=== PATIENT | female | born 1960 | race American Indian/Alaskan Native ===

== ENCOUNTER 2017-04-18 11:00 | Outpatient (CLI) | payer BC ==
--- NOTE | 2017-04-18 11:43 | Mammography Report ---
BILATERAL MAMMOGRAM: FINDINGS: There are scattered fibroglandular densities (approximately 25%-50% glandular). No mass, distortion, suspicious calcification, or skin change is seen. There are no interval changes when compared to her prior examination in January 2015. CAD was utilized. IMPRESSION: Negative mammogram. There is no mammographic evidence of malignancy. RECOMMENDATION: Follow-up per ACS guidelines. BI-RADS CATEGORY: 1 = Negative ACR BI-RADS MAMMOGRAPHIC CODES: 0 = Needs additional imaging evaluation; 1 = Negative; 2 = Benign; 3 = Probably benign; 4 = Suspicious; 5 = Malignant; 6 = Known biopsy-proven malignancy COMMENT: 1. Dense breast tissue, i.e., adenosis, fibrocystic changes, etc., may obscure an underlying neoplasm. 2. Approximately 10% of cancers are not detected with mammography. 3. A negative mammography report should not delay biopsy if a clinically suspicious mass is present. COMMENT: Patient follow-up letters are generated in [employer].
== END 2017-04-18 11:01 | disposition home or self-care (01) ==
LOC: MAMMO 11:00
PROVIDERS: ATTEND Obstetrics & Gynecology
DX: Z12.31 Encounter for screening mammogram for malignant neoplasm of breast (principal); I10 Essential (primary) hypertension; E78.00 Pure hypercholesterolemia, unspecified; J45.909 Unspecified asthma, uncomplicated; D64.9 Anemia, unspecified; Z87.891 Personal history of nicotine dependence
CPT/HCPCS: 77067; G0202

== ENCOUNTER 2017-05-29 08:14 | Outpatient (CLI) | payer BC ==
--- NOTE | 2017-06-04 10:58 | Treadmill Report ---
ORDERING PHYSICIAN: Jabari Remy MD FINDINGS: There is no scintigraphic evidence of myocardial ischemia. The left ventricle is normal in size and systolic function. The left ventricular ejection fraction is measured at 70% with normal wall motion and wall thickening noted on gated imaging. IMPRESSION: Normal perfusion scan. JOB# [id number] NED/NTS
== END 2017-05-29 08:15 | disposition home or self-care (01) ==
LOC: CARD 08:14
PROVIDERS: ATTEND Internal Medicine Cardiovascular Disease
DX: I08.1 Rheumatic disorders of both mitral and tricuspid valves (principal); I10 Essential (primary) hypertension; R00.2 Palpitations; R01.1 Cardiac murmur, unspecified; Z87.891 Personal history of nicotine dependence
CPT/HCPCS: 78452; 93017; 93306; A9502

== ENCOUNTER → 2018-03-08 | Outpatient (CLI) | payer BC | LOC: SLR 11:00 | PROVIDERS: ATTEND Otolaryngology | DX: G47.30 Sleep apnea, unspecified (principal); I10 Essential (primary) hypertension; E78.00 Pure hypercholesterolemia, unspecified; J45.909 Unspecified asthma, uncomplicated; Z87.891 Personal history of nicotine dependence | CPT/HCPCS: 95810 ==

== ENCOUNTER 2018-04-18 10:13 | Outpatient (CLI) | payer BC ==
[2018-04-18 11:04] LABS: BUN/Creatinine Ratio 19; Blood Urea Nitrogen 15 mg/dL (7-17); Calcium 9.5 mg/dL (8.4-10.2); Chol/HDL Ratio 5.86 %; HDL Cholesterol 38 mg/dL (40-59); Hemolysis Index 1; LDL Cholesterol,Direct 189 mg/dL (50-130)
== END 2018-04-18 10:14 | disposition home or self-care (01) ==
LOC: LAB 10:13
PROVIDERS: ATTEND Internal Medicine
DX: I10 Essential (primary) hypertension (principal); E78.00 Pure hypercholesterolemia, unspecified; E11.40 Type 2 diabetes mellitus with diabetic neuropathy, unspecified; J45.909 Unspecified asthma, uncomplicated; Z87.891 Personal history of nicotine dependence
CPT/HCPCS: 36415; 80048; 80061; 83036; 84443

== ENCOUNTER 2018-04-20 11:00 | Outpatient (CLI) | payer BC | END 2018-04-20 11:01 | disposition home or self-care (01) | LOC: SLR 11:00 | PROVIDERS: ATTEND Otolaryngology | DX: G47.33 Obstructive sleep apnea (adult) (pediatric) (principal); R40.0 Somnolence; I10 Essential (primary) hypertension; E78.00 Pure hypercholesterolemia, unspecified; J45.909 Unspecified asthma, uncomplicated; Z87.891 Personal history of nicotine dependence; Z91.040 Latex allergy status; Z91.048 Other nonmedicinal substance allergy status | CPT/HCPCS: 95811 ==

== ENCOUNTER 2018-06-05 16:43 | Outpatient (CLI) | payer BC ==
--- NOTE | 2018-06-05 19:21 | XRay Report ---
FINAL REPORT EXAM: XR SPINE LUMBOSACRAL 4+V HISTORY: LOWER BACK PAIN TECHNIQUE: AP, lateral, bilateral oblique, and coned-down views of the lumbar spine PRIORS: None. FINDINGS: The vertebral body heights and disc spaces are well maintained. The alignment is normal. No evidence for spondylolysis or spondylolisthesis is seen. Pedicles are intact bilaterally at all levels. The paraspinal soft tissues are unremarkable. There is a large rounded amorphous 3.5 cm calcification in the left side of the pelvis, likely a uterine fibroid. IMPRESSION: Normal lumbar spine.
== END 2018-06-05 16:44 | disposition home or self-care (01) ==
LOC: XRAY 16:43
PROVIDERS: ATTEND Nurse Practitioner
DX: M54.5 Low back pain (principal); I10 Essential (primary) hypertension; E78.00 Pure hypercholesterolemia, unspecified; Z87.891 Personal history of nicotine dependence; Z91.040 Latex allergy status; Z91.048 Other nonmedicinal substance allergy status
CPT/HCPCS: 72110

== ENCOUNTER 2019-03-02 08:24 | Outpatient (CLI) | payer BC ==
[2019-03-02 11:57] LABS: Chol/HDL Ratio 4.2 %
[2019-03-05 06:50] LABS: Vitamin D, 25-OH, D2 31 ng/mL
== END 2019-03-02 08:25 | disposition home or self-care (01) ==
LOC: LAB 08:24
PROVIDERS: ATTEND Internal Medicine
DX: E11.40 Type 2 diabetes mellitus with diabetic neuropathy, unspecified (principal); E55.9 Vitamin D deficiency, unspecified; E78.5 Hyperlipidemia, unspecified; E66.09 Other obesity due to excess calories; A69.20 Lyme disease, unspecified; E78.00 Pure hypercholesterolemia, unspecified; J45.909 Unspecified asthma, uncomplicated
CPT/HCPCS: 36415; 80061; 82306; 82607; 83036

== ENCOUNTER 2019-05-11 09:26 | Outpatient (CLI) | payer BC ==
[2019-05-11 10:13] LABS: Bacteria,Urine 1+ /HPF (Negative); Bilirubin,Urine NEG (Negative); Blood,Urine MOD (Negative); Color,Urine Yellow (Yellow); Mucus,Urine FEW /HPF; Protein,Urine <15 mg/dL mg/dL (Negative); Urobilinogen,Urine < 2.0 mg/dL (<2.0)
== END 2019-05-11 09:27 | disposition home or self-care (01) ==
LOC: LAB 09:26
PROVIDERS: ATTEND Internal Medicine
DX: N39.0 Urinary tract infection, site not specified (principal); E78.00 Pure hypercholesterolemia, unspecified; I10 Essential (primary) hypertension
CPT/HCPCS: 81001; 87076; 87086; 87186

== ENCOUNTER 2019-05-26 08:26 | Day surgery (SDC) | payer BC ==
[~2019-05-26 08:26] MED LIST: DIPRIVAN 10 MG/ML IV ONE; NACL 0.9% 1000 ML 1,000 ML IV SCH
--- NOTE | 2019-05-26 09:30 | Anesthesia Day of Surgery ---
Anesthesia Day of Surgery - Day of Surgery Patient Examined: Yes Patient H&P Reviewed: Yes Patient is NPO: Yes
--- NOTE | 2019-05-26 09:34 | Anesthesia Consultation ---
Anesthesia Consult and Med Hx Date of service: 05/26/19 - Airway Anesthetic Teeth Evaluation: Caps ROM Head & Neck: Adequate Mental/Hyoid Distance: Adequate Mallampati Class: Class II Intubation Access Assessment: Probably Good - Pre-Operative Health Status ASA Pre-Surgery Classification: ASA3 Proposed Anesthetic Plan: MAC - Pulmonary Hx Smoking: Yes (STOPPED X 22YRS- 1 PPD X 10 YRS) Hx Asthma: Yes (INHALERS PRN) Hx Sleep Apnea: Yes (DX SLEEP APNEA , NO CPAP USE.) - Cardiovascular System Hx Hypertension: Yes Hx Cardia Arrhythmia: Yes (PVCs; NST approx 3years ago ok per pt) Hx Heart Murmur: Yes (CAUSES NO PROBLEMS) - Gastrointestinal Hx Gastroesophageal Reflux Disease: Yes (Occasional) - Endocrine Hx Non-Insulin Dependent Diabetes: Yes (FBS 101) - Hematic Hx Anemia: Yes - Other Systems Hx Cancer: No
--- NOTE | 2019-05-26 11:05 | Short Stay Summary ---
Short Stay Documentation Date of service: 05/26/19 Narrative H&P: The patient present for her first screening colonoscopy, high risk due to FH of a first degree relative with colon polyps, mother. - History Past Medical History: anemia, diabetes, hypertension, hyperlipidemia, other (asthma) Past Surgical History: No surgical history Social history: no significant social history - Allergies and Medications Current Medications: Allergies latex Allergy (Verified 08/31/16 08:50) Itching METALS Allergy (Uncoded 08/31/16 08:51) Itching Home Medications Medication Instructions Recorded Confirmed Last Taken Type metFORMIN [Glucophage] 500 mg PO BID 11/20/13 05/26/19 05/24/19 History ALBUTEROL Inhaler (OR & NICU) 2 puff IH QID PRN 08/30/16 08/30/16 Unknown History [Proair] Aspirin [Adult Low Dose Aspirin EC] 81 mg PO DAILY 08/30/16 08/30/16 Unknown History Losartan [Cozaar] 50 mg PO QDAY 08/30/16 08/30/16 Unknown History Metformin HCl [Glucophage] 1,000 mg PO BID 08/30/16 08/30/16 Unknown History Mometasone/Formoterol [Dulera 100 2 puff IH PRN PRN 08/30/16 08/30/16 Unknown History Mcg/5 Mcg Inhaler] Verapamil HCl [Verapamil ER] 180 mg PO QHS 08/30/16 05/26/19 05/24/19 History ALBUTEROL Inhaler (OR & NICU) 2 puff IH QID PRN 08/31/16 09/12/16 08/15/16 09:00 History [Proair] Aspirin [Adult Low Dose Aspirin EC] 81 mg PO DAILY 08/31/16 09/12/16 05/24/19 History Losartan [Cozaar] 50 mg PO QDAY 08/31/16 05/26/19 05/24/19 History Mometasone/Formoterol [Dulera 100 2 puff IH PRN PRN 08/31/16 09/12/16 08/29/16 09:00 History Mcg/5 Mcg Inhaler] Verapamil ER [Calan Sr] 180 mg PO QHS 08/31/16 09/12/16 09/11/16 22:30 History Active Medications Sodium Chloride (Nacl 0.9% 1000 Ml) 1,000 mls @ 50 mls/hr IV DIRECT FELIBERTO Last Admin: 05/26/19 09:31 Dose: 50 mls/hr Documented by: - Physical exam General appearance: no acute distress, well-nourished Integumentary: no rash, no growths, no abnormal pigmentation HEENT: Atraumatic, PERRLA, EOMI, Mucous membr. moist/pink Lungs: Clear to auscultation, Normal air movement Breasts: deferred Heart: Regular rate, Normal S1, Normal S2, No murmurs Gastrointestinal: normoactive bowel sounds, no tenderness, no distended, no masses, no guarding, no organomegaly Female Genitourinary: deferred Rectal Exam: normal exam-external/orifice, no mass Extremities: no ischemia, pulses intact, pulses symmetrical, No edema, normal temperature, normal color, Full ROM Neurological: Normal gait, Normal speech, Strength at 5/5 X4 ext, Normal tone, Sensation intact, Cranial nerves 3-12 NL - Brief post op/procedure progress note Date of procedure: 05/26/19 Findings: report dictated Estimated blood loss: none Pathology: none Condition: stable - Disposition Condition at discharge: Good Disposition: DC-01 TO HOME OR SELFCARE - Discharge Diagnoses (1) FH: colon polyps Status: Acute Short Stay Discharge Plan Activity: other (no driving for 24 hours) Weight Bearing Status: Weight Bear as Tolerated Diet: diabetic Follow up with: ZANDRA DORANTES MD [Primary Care Provider] - 7 Days
--- NOTE | 2019-05-26 11:07 | Operative Report ---
Operative Report Operative Report: Date of procedure: 05/26/2019 Preprocedure diagnosis:, Family history of colon polyps in a first-degree relat bettie. No prior colon studies. Post procedure diagnosis: Almost study Procedure: Colonoscopy to the cecum Endoscopist: Dr. Hines Anesthesia: Monitored anesthesia care per anesthesia department Estimated blood loss: 0 Medications: Monitored anesthesia care. See separate report by anesthesia for details. After careful discussion of the nature and purpose of the procedure as well as details of the technique risks benefits and alternatives the patient gave consent. Please see recent history and physical from the office. The patient was placed in the left lateral decubitus position and medicated per anesthesia. A rectal exam was performed sphincter tone was normal there were no masses palpable. The Olympus PCH 190 video colonoscope was passed transanally and advanced under continuous direct vision without difficulty to the cecum. The colon was well prepared. The cecum was normal. The ascending colon was normal and on forward and retroflexed views. The transverse colon, descending colon, and sigmoid colon were normal. The rectum was normal on forward and retroflexed views. The procedure was well-tolerated overall and the patient was observed in recovery. Conclusions: Normal colonoscopy to the cecum. Plan: Repeat colonoscopy in 5 years. Signed electronically: Tramaine Hines M.D.
[2019-05-26 11:39] VITALS: BP 152/81
== END 2019-05-26 08:27 | disposition home or self-care (01) ==
LOC: GIO 08:26
PROVIDERS: ATTEND Internal Medicine Gastroenterology
DX: Z12.11 Encounter for screening for malignant neoplasm of colon (principal); I10 Essential (primary) hypertension; E11.9 Type 2 diabetes mellitus without complications; J45.909 Unspecified asthma, uncomplicated; G47.30 Sleep apnea, unspecified; K21.9 Gastro-esophageal reflux disease without esophagitis; E78.00 Pure hypercholesterolemia, unspecified; Z83.71 Family history of colonic polyps; Z91.040 Latex allergy status; Z79.899 Other long term (current) drug therapy; Z79.84 Long term (current) use of oral hypoglycemic drugs; Z79.82 Long term (current) use of aspirin; Z98.49 Cataract extraction status, unspecified eye; Z87.440 Personal history of urinary (tract) infections; Z98.890 Other specified postprocedural states; Z87.891 Personal history of nicotine dependence; Z88.8 Allergy status to other drugs, medicaments and biological substances; Z86.2 Personal history of diseases of the blood and blood-forming organs and certain disorders involving the immune mechanism
CPT/HCPCS: 45378; 82962; J2704; J7030

== ENCOUNTER 2019-12-23 09:12 | Outpatient (CLI) | payer BC | END 2019-12-23 09:13 | disposition home or self-care (01) | LOC: PF 09:12 | PROVIDERS: ATTEND Internal Medicine | DX: J45.909 Unspecified asthma, uncomplicated (principal) | CPT/HCPCS: 94010; 94726; 94729 ==

== ENCOUNTER 2020-07-27 15:54 | Outpatient (CLI) | payer BC ==
--- NOTE | 2020-07-27 17:20 | XRay Report ---
XR hip 2-3V RT INDICATION / CLINICAL INFORMATION: PAINFUL RT HIP X 3 MONTHS. COMPARISON: None available. FINDINGS: No acute fracture. Normal alignment. Joint spaces are preserved. No destructive osseous lesion or s uspicious periosteal reaction. 3.6 cm calcified fibroid. Impression: 1. No significant abnormality of the right hip. Signer Name: John Patino MD Signed: 07/27/2020 5:15 PM Workstation Name: [id number]
== END 2020-07-27 15:55 | disposition home or self-care (01) ==
LOC: XRAY 15:54
PROVIDERS: ATTEND Internal Medicine
DX: M25.551 Pain in right hip (principal); D36.7 Benign neoplasm of other specified sites

== ENCOUNTER 2020-08-18 14:35 | Outpatient (CLI) | payer BC ==
--- NOTE | 2020-08-18 17:00 | Mammography Report ---
DIGITAL SCREENING MAMMOGRAM WITH CAD, 08/18/2020 INDICATION: Routine screening mammography. TECHNIQUE: Digital bilateral 2D mammography was obtained in the craniocaudal and mediolateral obliq ue projections. This examination was interpreted with the benefit of Computer-Aided Detection analysi s. COMPARISON: 04/18/2017 and 11/13/2018 FINDINGS: Breast Density: There are scattered areas of fibroglandular density. There is no evidence of dominant mass, suspicious calcifications or architectural distortion in eithe r breast. IMPRESSION: Follow up recommendation: Routine yearly BI-RADS Category 1: Negative. A "normal" or negative report should not discourage follow up or biopsy of a clinically significant f inding. A written summary of these findings will be mailed to the patient. The patient will be entered into a mammography reporting system which will generate a reminder letter for the patient's next appointmen t at the appropriate interval. The [employer] recommends yearly mammograms starting at age 40 and continuing as l binh as a woman is in good health. Breast MRI is recommended for women with an approximate 20-25% or greater lifetime risk of breast cancer, including women with a strong family history of breast or ova shane cancer or who have been treated for Hodgkin's disease. Signer Name: Jarrell Ramírez MD Signed: 08/18/2020 4:55 PM Workstation Name: [email or web address]
== END 2020-08-18 14:36 | disposition home or self-care (01) ==
LOC: MAMMO 14:35
PROVIDERS: ATTEND Internal Medicine
DX: Z12.31 Encounter for screening mammogram for malignant neoplasm of breast (principal); N64.89 Other specified disorders of breast
CPT/HCPCS: 77067

== ENCOUNTER 2020-09-09 07:13 | Outpatient (CLI) | payer BC ==
--- NOTE | 2020-09-09 09:20 | Magnetic Resonance Report ---
. MRI RIGHT HIP WITHOUT CONTRAST INDICATION / CLINICAL INFORMATION: rt hip pain and stiffness. COMPARISON: Right hip x-ray 07/27/2020 TECHNIQUE: Multisequence, multiplanar images were obtained. FINDINGS: ACETABULAR LABRUM: Degenerative signal superior labrum. ARTICULAR CARTILAGE: No significant abnormality. JOINT SPACE AND CAPSULE: No significant abnormality. GLUTEAL MUSCLES/TENDONS: Moderate grade partial width tear involving two thirds width right distal gl uteus medius tendon with peritendinous edema ILIOPSOAS MUSCLES/TENDON: No significant abnormality. PROXIMAL HAMSTRING TENDONS: No significant abnormality. GROIN MUSCLES/TENDONS: No significant abnormality. SUBCUTANEOUS SOFT TISSUES: No significant abnormality. BONES: No significant bone marrow edema. No fracture. No osseous lesion. SACROILIAC JOINT(S): No significant abnormality. LOWER LUMBAR SPINE: No significant abnormality of visualized lower lumbar spine. SOFT TISSUE WITHIN PELVIS: Several uterine leiomyomas, largest of which measures 2.9 cm within the le ft uterine body. ADDITIONAL FINDINGS: None. IMPRESSION: 1. Moderate grade partial width tear right gluteus medius tendon 2. Degenerative signal right acetabular labrum 3. Leiomyomatous uterus Signer Name: Philip Campos MD Signed: 09/09/2020 9:16 AM Workstation Name: [id number]
== END 2020-09-09 07:14 | disposition home or self-care (01) ==
LOC: MRI 07:13
PROVIDERS: ATTEND Internal Medicine
DX: S76.011A Strain of muscle, fascia and tendon of right hip, initial encounter (principal); M25.551 Pain in right hip; M16.11 Unilateral primary osteoarthritis, right hip; D25.9 Leiomyoma of uterus, unspecified; X58.XXXA Exposure to other specified factors, initial encounter; Y93.89 Activity, other specified; Y92.89 Other specified places as the place of occurrence of the external cause; Y99.8 Other external cause status
CPT/HCPCS: 73721

== ENCOUNTER 2021-07-07 14:29 | Outpatient (CLI) | payer BC ==
--- NOTE | 2021-07-07 17:02 | XRay Report ---
LUMBAR SPINE 4 VIEWS INDICATION / CLINICAL INFORMATION: M54.5 LOW BACK PAIN. COMPARISON: None available. FINDINGS: VERTEBRAE: No fracture. No significant malalignment. DISC SPACES:Mild discogenic degenerative disease L4-S1. FACET JOINTS:Moderate facet degenerative disease L4-S1 ADDITIONAL FINDINGS: No abnormal motion between flexion or extension views. 4.4 cm calcified uterine fibroid IMPRESSION: 1. Discogenic and facet degenerative disease lower lumbar spine 2 calcified uterine fibroid. Signer Name: Philip Campos MD Signed: 07/07/2021 4:58 PM Workstation Name: [id number]
== END 2021-07-07 14:30 | disposition home or self-care (01) ==
LOC: XRAY 14:29
PROVIDERS: ATTEND Orthopaedic Surgery
DX: M47.817 Spondylosis without myelopathy or radiculopathy, lumbosacral region (principal); D25.9 Leiomyoma of uterus, unspecified
CPT/HCPCS: 72110

== ENCOUNTER 2021-09-01 09:40 | Emergency (ER) | payer BC ==
[2021-09-01 10:57] LABS: Bilirubin,Urine NEG (Negative); Blood,Urine SM (Negative); Color,Urine Yellow (Yellow); Mucus,Urine FEW /HPF; Protein,Urine <15 mg/dL mg/dL (Negative); Urobilinogen,Urine < 2.0 mg/dL (<2.0)
[2021-09-01 11:06] LABS: Basophils % (Auto) 0.9 % (0.0-1.8); Eosinophils # (Auto) 0.2 K/mm3 (0.0-0.4); Eosinophils % (Auto) 4.8 % (0.0-4.3); Hemoglobin 11.3 gm/dl (10.1-14.3); Lymphocytes # (Auto) 1.3 K/mm3 (1.2-5.4); Lymphocytes % (Auto) 31.2 % (13.4-35.0); Mean Corpuscular HGB Conc 31 % (30-34); Mean Corpuscular Volume 85 fl (79-97); Monocytes # (Auto) 0.4 K/mm3 (0.0-0.8); Monocytes % (Auto) 8.6 % (0.0-7.3); Platelet Count 343 K/mm3 (140-440); Red Blood Count 4.25 M/mm3 (3.65-5.03); Red Cell Distribution Width 14.6 % (13.2-15.2)
[2021-09-01 11:25] LABS: Alanine Aminotransferase 24 units/L (7-56); Albumin 4.3 g/dL (3.9-5); BUN/Creatinine Ratio 17; Blood Urea Nitrogen 12 mg/dL (7-17); Calcium 9.2 mg/dL (8.4-10.2); Hemolysis Index 5
--- NOTE | 2021-09-01 11:49 | Emergency Department Report ---
ED General Adult HPI - General Chief complaint: Dizziness Stated complaint: SYNCOPE Time Seen by Provider: 09/01/21 10:30 Source: patient Mode of arrival: Ambulatory Limitations: No Limitations - History of Present Illness Initial comments: 61-year-old -[place] female patient presents with complaints of intermittent episodes of dizziness x1 month. Patient in describes the dizziness as feeling woozy and off balance. She denies any headache, syncopal episodes, chest pain, shortness of breath, vision changes, numbness/tingling/weakness in her limbs, confusion, memory loss, or difficulty with speech/ambulation. No blood thinner use per patient. She has history of diabetes and hypertension and follows with Dr. Ng, last appointment about 1 week ago per patient. No current dizziness per patient. She reports last episode of dizziness was yesterday and lasted about 30 to 40 minutes which was longer than normal so she decided to be seen today. Patient also denies any nausea/vomiting or urinary symptoms. She states she is intermittently compliant with her blood pressure medication. - Related Data Home Medications Medication Instructions Recorded Confirmed Last Taken metFORMIN [Glucophage] 500 mg PO BID 11/20/13 05/26/19 05/24/19 Albuterol Mdi (or & Nicu Only) 2 puff IH QID PRN 08/30/16 08/30/16 Unknown [ProAir HFA Inhaler] Aspirin [Adult Low Dose Aspirin EC] 81 mg PO DAILY 08/30/16 08/30/16 Unknown Losartan [Cozaar] 50 mg PO QDAY 08/30/16 08/30/16 Unknown Metformin HCl [Glucophage] 1,000 mg PO BID 08/30/16 08/30/16 Unknown Mometasone/Formoterol [Dulera 100 2 puff IH PRN PRN 08/30/16 08/30/16 Unknown Mcg-5 Mcg Inhaler] Verapamil HCl [Verapamil ER] 180 mg PO QHS 08/30/16 05/26/19 05/24/19 Aspirin [Adult Low Dose Aspirin EC] 81 mg PO DAILY 08/31/16 09/12/16 05/24/19 Losartan [Cozaar] 50 mg PO QDAY 08/31/16 05/26/19 05/24/19 Mometasone/Formoterol [Dulera 100 2 puff IH PRN PRN 08/31/16 09/12/16 08/29/16 09:00 Mcg-5 Mcg Inhaler] Verapamil ER [Calan SR] 180 mg PO QHS 08/31/16 09/12/16 09/11/16 22:30 Previous Rx's Medication Instructions Recorded Last Taken Type Albuterol Mdi (or & Nicu Only) 2 puff IH QID PRN #1 inha 06/17/19 Unknown Rx [ProAir HFA Inhaler] Allergies Allergy/AdvReac Type Severity Reaction Status Date / Time latex Allergy Itching Verified 07/10/21 13:36 METALS Allergy Itching Uncoded 07/10/21 13:36 ED Review of Systems ROS: Stated complaint: SYNCOPE Other details as noted in HPI Constitutional: denies: chills, diaphoresis, fever, malaise, weakness Respiratory: denies: cough, shortness of breath Cardiovascular: denies: chest pain Gastrointestinal: denies: abdominal pain, nausea, vomiting Neurological: denies: headache, weakness, numbness, paresthesias, confusion, ab normal gait, vertigo Hematological/Lymphatic: denies: easy bleeding ED Past Medical Hx - Past Medical History Previous Medical History?: Yes Hx Hypertension: Yes Hx Diabetes: Yes Hx Arthritis: Yes Hx Headaches / Migraines: Yes (MIGRAINES 25 YRS AGO) Hx Asthma: Yes (INHALERS PRN) 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- NOW NEG CXR) - Surgical History Past Surgical History?: Yes Additional Surgical History: BILATERAL CARPAL TUNNEL RELEASE - Social History Smoking Status: Never Smoker Substance Use Type: None - Medications Home Medications: Home Medications Medication Instructions Recorded Confirmed Last Taken Type metFORMIN [Glucophage] 500 mg PO BID 11/20/13 05/26/19 05/24/19 History Albuterol Mdi (or & Nicu Only) 2 puff IH QID PRN 08/30/16 08/30/16 Unknown Hist ory [ProAir HFA Inhaler] Aspirin [Adult Low Dose Aspirin EC] 81 mg PO DAILY 08/30/16 08/30/16 Unknown History Losartan [Cozaar] 50 mg PO QDAY 08/30/16 08/30/16 Unknown History Metformin HCl [Glucophage] 1,000 mg PO BID 08/30/16 08/30/16 Unknown History Mometasone/Formoterol [Dulera 100 2 puff IH PRN PRN 08/30/16 08/30/16 Unknown History Mcg-5 Mcg Inhaler] Verapamil HCl [Verapamil ER] 180 mg PO QHS 08/30/16 05/26/19 05/24/19 History Aspirin [Adult Low Dose Aspirin EC] 81 mg PO DAILY 08/31/16 09/12/16 05/24/19 History Losartan [Cozaar] 50 mg PO QDAY 08/31/16 05/26/19 05/24/19 History Mometasone/Formoterol [Dulera 100 2 puff IH PRN PRN 08/31/16 09/12/16 08/29/16 09:00 History Mcg-5 Mcg Inhaler] Verapamil ER [Calan SR] 180 mg PO QHS 08/31/16 09/12/16 09/11/16 22:30 History Albuterol Mdi (or & Nicu Only) 2 puff IH QID PRN #1 inha 06/17/19 Unknown Rx [ProAir HFA Inhaler] ED Physical Exam - General Limitations: No Limitations General appearance: alert, in no apparent distress - Head Head exam: Present: atraumatic, normocephalic - Eye Eye exam: Present: normal appearance. Absent: scleral icterus - Respiratory Respiratory exam: Absent: respiratory distress - Cardiovascular Cardiovascular Exam: Present: regular rate, normal rhythm - Neurological Exam Neurological exam: Present: alert, oriented X3, CN II-XII intact, normal gait, motor sensory deficit - Expanded Neurological Exam Expanded Cerebellar function: Finger to Nose: Normal, Heel to Wilder: Normal, Romberg: Normal Sensory exam: Upper Extremity Light Touch: Normal, Lower Extremity Light Touch: Normal Motor strength exam: RUE: 4, LUE: 4, RLE: 4, LLE: 4 Best Eye Response (Lynda): (4) open spontaneously Best Motor Response ([place]): (6) obeys commands Best Verbal Response (Lynda): (5) oriented Lynda Total: 15 - Psychiatric Psychiatric exam: Present: normal affect, normal mood - Skin Skin exam: Present: warm, dry, intact, normal color. Absent: rash ED Course Vital Signs 09/01/21 09/01/21 09:52 11:48 Temperature 98.4 F Pulse Rate 79 Pulse Rate [ 80 Lying] Respiratory 20 Rate Blood Pressure 139/72 Blood Pressure 132/70 [Lying] O2 Sat by Pulse 99 Oximetry ED Medical Decision Making - Lab Data Result diagrams: 09/01/21 10:29 09/01/21 10:29 Lab Results 09/01/21 09/01/21 09/01/21 Range/Units 10:29 10:29 10:33 WBC 4.1 L (4.5-11.0) K/mm3 RBC 4.25 (3.65-5.03) M/mm3 Hgb 11.3 (10.1-14.3) gm/dl Hct 36.0 (30.3-42.9) % MCV 85 (79-97) fl MCH 27 L (28-32) pg MCHC 31 (30-34) % RDW 14.6 (13.2-15.2) % Plt Count 343 (140-440) K/mm3 Lymph % (Auto) 31.2 (13.4-35.0) % Benson % (Auto) 8.6 H (0.0-7.3) % Eos % (Auto) 4.8 H (0.0-4.3) % Baso % (Auto) 0.9 (0.0-1.8) % Lymph # (Auto) 1.3 (1.2-5.4) K/mm3 Benson # (Auto) 0.4 (0.0-0.8) K/mm3 Eos # (Auto) 0.2 (0.0-0.4) K/mm3 Baso # (Auto) 0.0 (0.0-0.1) K/mm3 Seg Neutrophils % 54.5 (40.0-70.0) % Seg Neutrophils # 2.2 (1.8-7.7) K/mm3 Sodium 140 (137-145) mmol/L Potassium 4.2 (3.6-5.0) mmol/L Chloride 102.9 (98-107) mmol/L Carbon Dioxide 24 (22-30) mmol/L Anion Gap 17 mmol/L BUN 12 (7-17) mg/dL Creatinine 0.7 (0.6-1.2) mg/dL Estimated GFR > 60 ml/min BUN/Creatinine Ratio 17 % Glucose 216 H (65-100) mg/dL POC Glucose 225 H (70-105) mg/dL Calcium 9.2 (8.4-10.2) mg/dL Total Bilirubin 0.20 (0.1-1.2) mg/dL AST 20 (5-40) units/L ALT 24 (7-56) units/L Alkaline Phosphatase 59 (35-129) units/L Troponin T < 0.010 (0.00-0.029) ng/mL Total Protein 7.7 (6.3-8.2) g/dL Albumin 4.3 (3.9-5) g/dL Albumin/Globulin Ratio 1.3 % Urine Color (Yellow) Urine Turbidity (Clear) Urine pH (5.0-7.0) Ur Specific [place] (1.003-1.030) Urine Protein (Negative) mg/dL Urine Glucose (UA) (Negative) mg/dL Urine Ketones (Negative) mg/dL Urine Blood (Negative) Urine Nitrite (Negative) Urine Bilirubin (Negative) Urine Urobilinogen (<2.0) mg/dL Ur Leukocyte Esterase (Negative) Urine WBC (Auto) (0.0-6.0) /HPF Urine RBC (Auto) (0.0-6.0) /HPF U Epithel Cells (Auto) (0-13.0) /HPF Urine Mucus /HPF // Range/Units Unknown WBC (4.5-11.0) K/mm3 RBC (3.65-5.03) M/mm3 Hgb (10.1-14.3) gm/dl Hct (30.3-42.9) % MCV (79-97) fl MCH (28-32) pg MCHC (30-34) % RDW (13.2-15.2) % Plt Count (140-440) K/mm3 Lymph % (Auto) (13.4-35.0) % Benson % (Auto) (0.0-7.3) % Eos % (Auto) (0.0-4.3) % Baso % (Auto) (0.0-1.8) % Lymph # (Auto) (1.2-5.4) K/mm3 Benson # (Auto) (0.0-0.8) K/mm3 Eos # (Auto) (0.0-0.4) K/mm3 Baso # (Auto) (0.0-0.1) K/mm3 Seg Neutrophils % (40.0-70.0) % Seg Neutrophils # (1.8-7.7) K/mm3 Sodium (137-145) mmol/L Potassium (3.6-5.0) mmol/L Chloride (98-107) mmol/L Carbon Dioxide (22-30) mmol/L Anion Gap mmol/L BUN (7-17) mg/dL Creatinine (0.6-1.2) mg/dL Estimated GFR ml/min BUN/Creatinine Ratio % Glucose (65-100) mg/dL POC Glucose (70-105) mg/dL Calcium (8.4-10.2) mg/dL Total Bilirubin (0.1-1.2) mg/dL AST (5-40) units/L ALT (7-56) units/L Alkaline Phosphatase (35-129) units/L Troponin T (0.00-0.029) ng/mL Total Protein (6.3-8.2) g/dL Albumin (3.9-5) g/dL Albumin/Globulin Ratio % Urine Color Yellow (Yellow) Urine Turbidity Clear (Clear) Urine pH 5.0 (5.0-7.0) Ur Specific [place] 1.017 (1.003-1.030) Urine Protein <15 mg/dl (Negative) mg/dL Urine Glucose (UA) Neg (Negative) mg/dL Urine Ketones Neg (Negative) mg/dL Urine Blood Sm (Negative) Urine Nitrite Neg (Negative) Urine Bilirubin Neg (Negative) Urine Urobilinogen < 2.0 (<2.0) mg/dL Ur Leukocyte Esterase Neg (Negative) Urine WBC (Auto) 1.0 (0.0-6.0) /HPF Urine RBC (Auto) 3.0 (0.0-6.0) /HPF U Epithel Cells (Auto) 1.0 (0-13.0) /HPF Urine Mucus Few /HPF - EKG Data EKG shows normal: sinus rhythm Rate: normal - EKG Data Interpretation: other (Probable left atrial enlargement) - Medical Decision Making 61-year-old -[place] female patient presents with complaints of intermittent episodes of dizziness x1 month. Patient in describes the dizziness as feeling woozy and off balance. She denies any headache, syncopal episodes, chest pain, shortness of breath, vision changes, numbness/tingling/weakness in her limbs, confusion, memory loss, or difficulty with speech/ambulation. No blood thinner use per patient. She has history of diabetes and hypertension and follows with Dr. Ng, last appointment about 1 week ago per patient. No current dizziness per patient. She reports last episode of dizziness was yest erday and lasted about 30 to 40 minutes which was longer than normal so she decided to be seen today. Patient also denies any nausea/vomiting or urinary symptoms. She states she is intermittently compliant with her blood pressure medication. Neuro exam is normal. Patient continues to deny any dizziness at this time. No acute abnormalities noted on EKG. No acute abnormalities noted on labs aside from a mildly elevated anion gap of 17. Recommend patient follows up with her primary care physician for further evaluation within 2 to 3 days. Discussed increase in water intake and compliance with blood pressure medication. She is well-appearing and stable for discharge home. Also discussed in great detail signs and symptoms that should prompt immediate return to ED with patient who verbalizes understanding. Critical care attestation.: If time is entered above; I have spent that time in minutes in the direct care of this critically ill patient, excluding procedure time. ED Disposition Clinical Impression: Dizziness, Dehydration Disposition: HOME / SELF CARE / HOMELESS Is pt being admited?: No Condition: Stable Instructions: Dehydration, Adult, [id number], Dizziness Referrals: PRIMARY CARE, [Primary Care Provider] - 2-3 Days
[2021-09-01 11:51] VITALS: BP 132/70
--- NOTE | 2021-09-01 13:13 | Electrocardiograph Report ---
[facility] Test Date: 2021-09-01 Test Time: 10:38:12 Pat Name: TRIP GRECO Department: Room: Gender: F Supervisor Heat Treating: STORMY : 1960 Requested By: GABRIEL RENDON Order Number: [id number] Reading MD: Zainab Parks Measurements Intervals [place] Rate: 82 P: 60 [place]: 167 QRS: 4 QRSD: 90 T: 46 QT: 382 QTc: 446 Interpretive Statements Sinus rhythm Probable left atrial enlargement Poor R wave progression No previous ECG available for comparison Electronically Signed On 09-01-2021 13:13:01 EST by Zainab Parks
== END 2021-09-01 12:11 | disposition home or self-care (01) ==
LOC: ED 09:40
DX: E86.0 Dehydration (principal); R42 Dizziness and giddiness; I10 Essential (primary) hypertension; E11.9 Type 2 diabetes mellitus without complications; M19.90 Unspecified osteoarthritis, unspecified site; G43.909 Migraine, unspecified, not intractable, without status migrainosus; J45.909 Unspecified asthma, uncomplicated; Z91.040 Latex allergy status; Z91.09 Other allergy status, other than to drugs and biological substances; Z79.82 Long term (current) use of aspirin; Z79.899 Other long term (current) drug therapy
CPT/HCPCS: 36415; 80053; 81001; 82962; 84484; 85025; 93005; 99283

== ENCOUNTER 2021-09-05 08:04 | Outpatient (CLI) | payer BC ==
[2021-09-05 09:37] LABS: Eosinophils # (Auto) 0.2 K/mm3 (0.0-0.4); Eosinophils % (Auto) 5.2 % (0.0-4.3); Hematocrit 36.3 % (30.3-42.9); Hemoglobin 11.4 gm/dl (10.1-14.3); Lymphocytes # (Auto) 1.3 K/mm3 (1.2-5.4); Lymphocytes % (Auto) 35.6 % (13.4-35.0); Mean Corpuscular HGB Conc 32 % (30-34); Mean Corpuscular Volume 85 fl (79-97); Monocytes # (Auto) 0.3 K/mm3 (0.0-0.8); Monocytes % (Auto) 9.1 % (0.0-7.3); Platelet Count 322 K/mm3 (140-440); Red Blood Count 4.27 M/mm3 (3.65-5.03); Red Cell Distribution Width 14.6 % (13.2-15.2)
[2021-09-05 10:03] LABS: Alanine Aminotransferase 20 units/L (7-56); Albumin 4.3 g/dL (3.9-5); BUN/Creatinine Ratio 23; Blood Urea Nitrogen 16 mg/dL (7-17); Calcium 9.2 mg/dL (8.4-10.2); Chol/HDL Ratio 4.32 %; HDL Cholesterol 37 mg/dL (40-59); Hemolysis Index 20; LDL Cholesterol,Direct 104 mg/dL (50-130)
[2021-09-05 16:12] LABS: Creatinine,Urine 172.6 mg/dL (0.1-20.0)
[2021-09-05 16:13] LABS: Microalbumin/Creatinine Ratio 6.9 ug/mg
== END 2021-09-05 08:05 | disposition home or self-care (01) ==
LOC: LAB 08:04
PROVIDERS: ATTEND Internal Medicine
DX: Z00.00 Encounter for general adult medical examination without abnormal findings (principal); Z13.29 Encounter for screening for other suspected endocrine disorder; E78.5 Hyperlipidemia, unspecified; I10 Essential (primary) hypertension; E11.40 Type 2 diabetes mellitus with diabetic neuropathy, unspecified; E55.9 Vitamin D deficiency, unspecified
CPT/HCPCS: 36415; 80053; 80061; 82043; 82306; 83036; 84443; 85025

== ENCOUNTER 2021-09-20 08:23 | Outpatient (CLI) | payer BC ==
--- NOTE | 2021-09-20 11:04 | Mammography Report ---
DIGITAL SCREENING MAMMOGRAM WITH CAD, 09/20/2021 CLINICAL INFORMATION / INDICATION: Routine screening mammography. TECHNIQUE: Digital bilateral 2D mammography was obtained in the craniocaudal and mediolateral obliqu e projections. This examination was interpreted with the benefit of Computer-Aided Detection analysis . COMPARISON: 08/18/2020, 11/13/2018 FINDINGS: Breast Density: There are scattered areas of fibroglandular density. No dominant mass, suspicious calcifications, or architectural distortion in either breast. IMPRESSION: No mammographic evidence of malignancy. Follow up recommendation: Routine yearly BI-RADS Category 1: Negative. A "normal" or negative report should not discourage follow up or biopsy of a clinically significant f inding. A written summary of these findings will be mailed to the patient. The patient will be entered into a mammography reporting system which will generate a reminder letter for the patient's next appointmen t at the appropriate interval. The [employer] recommends yearly mammograms starting at age 40 and continuing as l binh as a woman is in good health. Breast MRI is recommended for women with an approximate 20-25% or greater lifetime risk of breast cancer, including women with a strong family history of breast or ova shane cancer or who have been treated for Hodgkin's disease. Signer Name: Maty Cardoza MD Signed: 09/20/2021 10:59 AM Workstation Name: [id number]
== END 2021-09-20 08:24 | disposition home or self-care (01) ==
LOC: MAMMO 08:23
PROVIDERS: ATTEND Internal Medicine
DX: Z12.31 Encounter for screening mammogram for malignant neoplasm of breast (principal)
CPT/HCPCS: 77067

== ENCOUNTER 2022-01-12 13:48 | Outpatient (CLI) | payer BC ==
[2022-01-12 15:08] LABS: Hematocrit 34.4 % (30.3-42.9); Hemoglobin 11.1 gm/dl (10.1-14.3); Mean Corpuscular HGB Conc 32 % (30-34); Mean Corpuscular Volume 83 fl (79-97); Platelet Count 335 K/mm3 (140-440); Red Blood Count 4.14 M/mm3 (3.65-5.03)
[2022-01-12 15:18] LABS: Blood Urea Nitrogen 15 mg/dL (7-17); Calcium 9.6 mg/dL (8.4-10.2); Eosinophils # (Auto) 0.2 K/mm3 (0.0-0.4); Eosinophils % (Auto) 5.6 % (0.0-4.3); Hemolysis Index 0; Lymphocytes # (Auto) 1.3 K/mm3 (1.2-5.4); Lymphocytes % (Auto) 31.5 % (13.4-35.0); Monocytes # (Auto) 0.5 K/mm3 (0.0-0.8)
[2022-01-12 15:23] LABS: BUN/Creatinine Ratio 25
--- NOTE | 2022-01-12 18:01 | Cat Scan Report ---
CT head/brain wo con INDICATION / CLINICAL INFORMATION: 61 years Female; R26.9 UNSPECIFIED ABNORMALITIES OF GAIT AND MOBILITY. TECHNIQUE: Routine CT head without contrast. All CT scans at this location are performed using CT dos e reduction for ALARA by means of automated exposure control. COMPARISON: None. FINDINGS: BRAIN / INTRACRANIAL CONTENTS: No acute hemorrhage, mass effect, midline shift, hydrocephalus, or acu te, large territorial infarct. No signs of significant atrophy or chronic infarct. No significant whi te matter abnormality seen. CRANIOCERVICAL JUNCTION: No significant abnormality. ORBITS: No significant abnormality of visualized orbits. SINUSES / MASTOIDS: Visualized paranasal sinuses and mastoid air cells are essentially clear. ADDITIONAL FINDINGS: None. IMPRESSION: 1. No focal mass, hemorrhage, hydrocephalus, or acute, large territorial infarct. Signer Name: Kei Talbert MD, III Signed: 01/12/2022 5:57 PM Workstation Name: [id number]
== END 2022-01-12 13:49 | disposition home or self-care (01) ==
LOC: CT 13:48
PROVIDERS: ATTEND Internal Medicine
DX: R42 Dizziness and giddiness (principal); E11.40 Type 2 diabetes mellitus with diabetic neuropathy, unspecified; R26.9 Unspecified abnormalities of gait and mobility
CPT/HCPCS: 36415; 70450; 80048; 83036; 85025

== ENCOUNTER 2022-05-08 08:40 | Outpatient (CLI) | payer BC ==
[2022-05-08 12:35] LABS: Chol/HDL Ratio 4.05 %
== END 2022-05-08 08:41 | disposition home or self-care (01) ==
LOC: LABHHL 08:40
PROVIDERS: ATTEND Internal Medicine
DX: E11.40 Type 2 diabetes mellitus with diabetic neuropathy, unspecified (principal); E78.5 Hyperlipidemia, unspecified
CPT/HCPCS: 36415; 80061; 83036

== ENCOUNTER 2022-06-04 07:38 | Outpatient (CLI) | payer BC | END 2022-06-04 07:39 | disposition home or self-care (01) | LOC: ECHO 07:38 → CARD 07:38 → ECHO 07:39 | PROVIDERS: ATTEND Internal Medicine | DX: I07.1 Rheumatic tricuspid insufficiency (principal) | CPT/HCPCS: 93306; C8929 ==

== ENCOUNTER 2022-06-05 06:00 | Outpatient (CLI) | payer BC ==
--- NOTE | 2022-06-05 11:45 | Treadmill Report ---
[facility] Test Date: 2022-06-05 Test Time: 08:39:00 Pat Name: TRIP GRECO Department: Room: Gender: F Forensic Economist: Maegan Lacey : 1960 Requested By: ZANDRA DORANTES Order Number: [id number] Reading MD: Francis Aden Interpretive Statements Treadmill stress test was performed using Gianfranco protocol. Patient exercised for 7 minutes 39 seconds and achieved 8.8 METS. Patient did not achieve the target heart rate. She achieved 83% of maximal heart rate. The blood pressure response was appropriate. There were frequent PVCs both at rest and with stress. There was no evidence of ischemic ST and T changes at the heart rates achieved. However, the results are limited by submaximal stress test. Electronically Signed On 06-05-2022 11:44:52 EDT by Francis Aden
== END 2022-06-05 06:01 | disposition home or self-care (01) ==
LOC: CARD 06:00
PROVIDERS: ATTEND Internal Medicine
DX: R06.02 Shortness of breath (principal)
CPT/HCPCS: 93017